=== PATIENT | male | born 1980 | race Caucasian/White ===

== ENCOUNTER 2017-03-08 18:21 | Emergency (ER) | payer OTHER ==
[~2017-03-08 18:21] MED LIST: AMOXICILLIN875 MG PO; CLEOCIN HCL300 M1 PO; FLEXERIL10 MG PO; FLOXIN10 ML; GLUCOPHAGE XR500 MG PO; GLUCOPHAGE500 M1 PO; GLUCOTROL PO; GLUCOTROL XL PO; KETOPROFEN PO; LANTUS100 U/ML; LANTUS100 U/ML SUBQ; METFORMIN HCL500 M1 PO; NAPROSYN500 MG PO; NAPROXEN; NEXIUM; NEXIUM PO; NORCO 10-325 TA1 TAB PO; PRILOSEC20 MG PO; ROBITUSSIN A-C S5 ML PO; SKELAXIN PO; TYLENOL #3 PO; VIBRAMYCIN100 M1 PO; VOLTAREN75 MG PO; ZESTRIL10 M1 PO; ZITHROMAX PO; ZYRTEC PO; ZYRTEC10 M1 PO; ZYRTEC10 M2 PO
== END 2017-03-08 19:34 | disposition home or self-care (01) ==
LOC: SED 18:21
DX: J06.9 Acute upper respiratory infection, unspecified (principal); E11.9 Type 2 diabetes mellitus without complications; Z79.4 Long term (current) use of insulin; Z79.899 Other long term (current) drug therapy
CPT/HCPCS: 87651; 99282